=== PATIENT | male | born 1950 | race Caucasian/White ===

== ENCOUNTER 2020-05-01 09:40 | Observation (INO) | payer BC ==
[~2020-05-01] VITALS: Ht 182.9 cm; Wt 73.5 kg
--- OUTSIDE RECORDS SUMMARY | 2020-05-01 09:45 | XMS REPORT | Continuity of Care Document ---
Author Author [facility] Organization [facility] Address [address] [place] [address] [place] [phone] Phone Unavailable Care Team Providers Care Cashier Or Checker Stock Clerk Name Role Phone GIANA KWON Unavailable Problems This patient has no known problems. Allergies, Adverse Reactions, Alerts This patient has no known allergies or adverse reactions. Medications This patient has no known medications. Procedures This patient has no known procedures. Results Test Description Test Time Test Comments Results Result Comments Source US EXTREMITY RAMOS NON-VAS [place] [address] Patient Name: PHILIP LIU MR #: [id number] : 1950 Age/Sex: 67/M Req #: [id number] Adm Physician: Ordered by: GIANA KWON DO Report #: [id number] Location: US Room/Bed: Procedure: [id number] US/US EXTREMITY RAMOS NON-VAS Exam Date: Exam Time: REPORT STATUS: Signed PROCEDURE: EXTREMITY ULTRASOUND COMPARISON: None. INDICATIONS: Left Groin Pain, history of lymphoma TECHNIQUE: Color duplex Doppler ultrasound evaluation analysis was performed in the usual manner. FINDINGS: Directed sonographic interrogation of the right inguinal canal demonstrates multiple enlarged lymph nodes. The largest measures 2.5 x 3.4 x 1.3 cm. There is normal sonographic echotexture and vascularity. Directed sonographic interrogation of the left inguinal canal demonstrates multiple enlarged lymph nodes. The largest measures 1.2 x 4.5 x 2.9 cm. This also has normal sonographic echotexture and vascularity. The patient indicates a palpable area in the area pain in the left groin which corresponds to the largest left inguinal lymph node. There is no evidence of hernia or fluid collection. Regional vascular structures are normal in morphology. CONCLUSION: Bilateral inguinal lymphadenopathy consistent with patient's history of lymphoma. No evidence of hernia. Dictated by: Kelley Segal M.D. on 08/06/2017 at 17:16 Electronically approved by: Kelley Segal M.D. on 08/06/2017 at 17:16 Dictated By: KELLEY SEGAL MD 15 Transcribed By: HEIDI on 08/06/171715 COPY TO: GIANA KWON TESTICULAR [place] [address] Patient Name: PHILIP LIU MR #: [id number] : 1950 Age/Sex: 67/M Req #: [id number] [facility] Physician: Ordered by: GIANA KWON DO Report #: [id number] Location: Room/Bed: Procedure: [id number] US/US TESTICULAR Exam Date: 08/06/17 Exam Time: 1552 REPORT STATUS: Signed PROCEDURE: TESTICULAR ULTRASOUND COMPARISON: Patients [facility], US, US TESTICULAR DOPPLER LTD, 08/06/2017, 15:[address] of the chest, abdomen, pelvis performed 02/17/2012 INDICATIONS: Left Testicular Pain, history of lymphoma TECHNIQUE: The scrotum was evaluated with agustin scale and color duplex Doppler sonography. FINDINGS: TESTES: Right testicle: Measures 10.5 x 4.1 x 4.0 cm. Left testicle: Measures 2.3 x 3.4 x 6.3 cm. Echotexture: Normal. Mass: Normal. Vascularity: Normal on color and spectral Doppler interrogation. EPIDIDYMIS: Right epididymal head measures 5 x 7 x 14 mm. Left epididymal head measures 8 x 15 x 10 mm. Mass: Left epididymal head cyst 3 x 6 x 4 mm. Hydrocele/varicocele: None. OTHER: No evidence of hernia or other abnormality. CONCLUSION: 1. The left testicle is longer than the right, but otherwise normal. 2. Normal testicular blood flow. 3. Small left epididymal head cyst. Dictated by: Kelley Segal M.D. on 08/06/2017 at 17:22 Electronically approved by: Kelley Segal M.D. on 08/06/2017 at 17:22 Dictated By: KELLEY SEGAL MD 172 Transcribed By: HEIDI on 08/06/17 172 COPY TO: GIANA KWON DO US TESTICULAR DOPPLER LTD [place] [address] Patient Name: PHILIP LIU MR #: [id number] : 1950 Age/Sex: 67/M Req #: [id number] Adm Physician: Ordered by: GIANA KWON DO Report #: [id number] Location: US Room/Bed: Procedure: [id number] US/US TESTICULAR DOPPLER LTD Exam Date: 08/06/17 Exam Time: 1522 REPORT STATUS: Signed PROCEDURE: TESTICULAR DOPPLER ULTRASOUND COMPARISON: None. INDICATIONS: Left Testicular Pain CONCLUSION: Please see ACC# [id number] for report. It should be noted that the right testicle measures 2.5 x 4.1 x 4.0 cm. Dictated by: Kelley Segal M.D. on 08/06/2017 at 17:28 Electronically approved by: Kelley Segal M.D. on 08/06/2017 at 17:28 Dictated By: KELLEY SEGAL MD 27 Transcribed By: HEIDI on 08/06/171727 COPY TO: GIANA KWON DO
[2020-05-01] MEDS ORDERED: SODIUM CHLORIDE 0.9% 1000ML 1,000 ML IV STA (09:56)
[2020-05-01] MEDS ORDERED: ASPIRIN 81 MG CHEW TAB PO STA (09:56)
[2020-05-01] MEDS ORDERED: PANTOPRAZOLE 40 MG 10ML VIAL IV STA (09:56)
[2020-05-01 10:17] LABS: BASOPHILS # (AUTO) 0.1 (0.0-0.1); BASOPHILS % 0.7 % (0.0-1.0); EOSINOPHILS # (AUTO) 0.1 (0.0-0.4); EOSINOPHILS % 1.6 % (0.0-6.0); HEMATOCRIT 44.2 % (38.2-49.6); HEMOGLOBIN 14.3 g/dL (14.0-18.0); LYMPHOCYTES # (AUTO) 1.5 (1.0-3.2); LYMPHOCYTES % 20.1 % (18.0-39.1); MEAN CORPUSCULAR HEMOGLOBIN 29.9 pg (28-32); MEAN CORPUSCULAR HGB CONC 32.4 g/dL (31-35); MEAN CORPUSCULAR VOLUME 92.5 fL (81-99); MONOCYTES # (AUTO) 0.7 (0.2-0.8); MONOCYTES % 9.8 % (4.4-11.3); NEUTROPHILS % 67.5 % (38.7-80.0); PLATELET COUNT 240 x10e3/uL (140-360); RED BLOOD COUNT 4.78 x10e6/uL (4.3-5.7); RED CELL DISTRIBUTION WIDTH 12.5 % (11.7-14.4)
--- NOTE | 2020-05-01 10:38 | Diagnostic Imaging Report ---
EXAMINATION: CHEST SINGLE (PORTABLE) INDICATION: Chest pain COMPARISON: None FINDINGS: LINES/TUBES:EKG leads overlie the chest. LUNGS:The lungs are well-inflated. No focal consolidation or pulmonary edema. PLEURA:No pleural effusion or pneumothorax. MEDIASTINUM:The cardiomediastinal silhouette appears normal in size and shape. BONES/SOFT TISSUES:No acute osseous injury. ABDOMEN:No free air under the diaphragm. IMPRESSION: No focal pneumonia or pulmonary edema. Signed by: Imtiaz Hardin MD on 05/01/2020 10:35 AM
[2020-05-01 10:42] LABS: ALANINE AMINOTRANSFERASE 14 IU/L (0-55); ALBUMIN 3.7 g/dL (3.5-5.0); ALBUMIN/GLOBULIN RATIO 1.1 (0.8-2.0); ALKALINE PHOSPHATASE 63 IU/L (40-150); ANION GAP 13.6 mmol/L (8-16); BLOOD UREA NITROGEN 13 mg/dL (7-26); BUN/CREATININE RATIO 16 (6-25); CALCIUM 9.5 mg/dL (8.4-10.2); CARBON DIOXIDE 26 mmol/L (22-29); CHLORIDE 101 mmol/L (98-107); CREATINE KINASE 115 IU/L (30-200); CREATININE, SERUM 0.83 mg/dL (0.72-1.25); EST GLOMERULAR FILTRATION RATE > 60 ML/MIN (60-); GLUCOSE 104 mg/dL (74-118); LIPASE 22 U/L (8-78); POTASSIUM 4.6 mmol/L (3.5-5.1); SODIUM 136 mmol/L (136-145)
[2020-05-01 10:49] LABS: INR 0.87; PARTIAL THROMBOPLASTIN TIME 27.8 seconds (23.8-35.5); PROTHROMBIN TIME 12.3 seconds (11.9-14.5)
[2020-05-01 11:09] LABS: CLARITY,URINE CLEAR (CLEAR); COLOR,URINE YELLOW (YELLOW); LEUKOCYTE ESTERASE ,URINE NEGATIVE (NEGATIVE); NITRITE,URINE NEGATIVE (NEGATIVE)
[2020-05-01 11:10] LABS: BILIRUBIN,URINE NEGATIVE (NEGATIVE); KETONES,URINE NEGATIVE (NEGATIVE); PROTEIN,URINE DIPSTICK NEGATIVE (NEGATIVE); URINE UROBILINOGEN 0.2 mg/dL (0.2 - 1)
[2020-05-01 11:23] LABS: BACTERIA,URINE RARE /HPF; EPITHELIAL CELLS,URINE RARE /LPF
--- NOTE | 2020-05-01 11:42 | NUR ---
Attempted to administer 81 mg chewable aspirin as order per . Pt states he took 325 mg Aspirin this AM at 0800 before coming to ER and declined this administration. Notified
[2020-05-01] MEDS ORDERED: NITROGLYCERIN 0.4 MG SUBL SL PRN (11:45)
[2020-05-01] MEDS ORDERED: ONDANSETRON HCL INJ 2MG/ML 2ML 2 MG/ML VIAL IV PRN (11:45)
[2020-05-01] MEDS ORDERED: MORPHINE SULFATE 2 MG/ML SYR 1ML IV PRN (11:45)
--- OUTSIDE RECORDS SUMMARY | 2020-05-01 11:45 | XMS REPORT | Continuity of Care Document ---
Author Author [facility] Organization [facility] Address [address] [place]. [address] [place] [phone] Phone Unavailable Care Team Providers Care Photo Lab Manager Name Role Phone Ricki MARTEL Attphys Unavailable GIANA KWON Attphytosin Unavailable Problems This patient has no known problems. Allergies, Adverse Reactions, Alerts This patient has no known allergies or adverse reactions. Medications This patient has no known medications. Procedures This patient has no known procedures. Results Test Description Test Time Test Comments Results Result Comments Source CHEST SINGLE (PORTABLE) 2020-05-01 10:34:00 [place] [address] Patient Name: ABDULAZIZ LIU MR #: [id number] : 1950 Age/Sex: 69/M Req #: [id number] Adm Physician: Ordered by: SHAHANA MARTEL MD Report #: [id number] Location: ER Room/Bed: Procedure: [id number] DX/CHEST SINGLE (PORTABLE) Exam Date: 05/01/20 Exam Time: 1000 REPORT STATUS: Signed EXAMINATION: CHEST SINGLE (PORTABLE) INDICATION: Chest pain COMPARISON: None FINDINGS: LINES/TUBES:EKG leads overlie the chest. LUNGS:The lungs are well-inflated. No focal consolidation or pulmonary edema. PLEURA:No pleural effusion or pneumothorax. MEDIASTINUM:The cardiomediastinal silhouette appears normal in size and shape. BONES/SOFT TISSUES:No acute osseous injury. ABDOMEN:No free air under the diaphragm. IMPRESSION: No focal pneumonia or pulmonary edema. Signed by: Malinda Villalta MD on 05/01/2020 10:35 AM Dictated By: MALINDA VILLALTA MD 34 Transcribed By: VIC on 05/01/201034 COPY TO: SHAHANA MARTEL MD US EXTREMITY RAMOS NON-VAS [place] [address] Patient Name: PHILIP LIU MR #: [id number] : 1950 Age/Sex: 67/M Req #: [id number] Adm Physician: Ordered by: GIANA KWON DO Report #: [id number] Location: US Room/Bed: Procedure: [id number] US/US EXTREMITY RAMOS NON-VAS Exam Date: Exam [...] HEIDI on 08/06/171715 COPY TO: GIANA KWON DO US TESTICULAR [place] [address] Patient Name: PHILIP LIU MR #: [id number] : 1950 Age/Sex: 67/M Req #: [id number] Adm Physician: Ordered by: GIANA KWON DO Report #: [id number] Location: US Room/Bed: Procedure: [id number] US/US TESTICULAR Exam Date: 08/06/17 Exam Time: 1552 REPORT STATUS: Signed PROCEDURE: TESTICULAR ULTRASOUND COMPARISON: [facility], US, US TESTICULAR DOPPLER [facility]TD, 08/06/2017, [...] at 17:22 Dictated By: KELLEY SEGAL MD 21 Transcribed By: HEIDI on 08/06/171721 COPY TO: GIANA KWON DO US TESTICULAR [facility]ER [employer] [place] [address] Patient Name: PHILIP LIU MR #: [id number] : 1950 Age/Sex: 67/M Req #: [id number] Adm Physician: Ordered by: GIANA KWON DO Report #: [id number] Location: Room/Bed: Procedure: [id number] US/US TESTICULAR DOPPLER LTD Exam Date: 08/06/17 Exam Time: 1522 REPORT STATUS: Signed PROCEDURE: TESTICULAR DOPPLER ULTRASOUND COMPARISON: None. INDICATIONS: Left Testicular Pain CONCLUSION: Please see ACC# [id number] for report. It should be noted that the right testicle measures 2.5 x 4.1 x 4.0 cm. Dictated by: Kelley Segal M.D. on 08/06/2017 at 17:28 Electronically approved by: Kelley Segal M.D. on 08/06/2017 at 17:28 Dictated By: KELLEY SEGAL MD 27 Transcribed By: HEIDI on 08/06/171727 COPY TO: GIANA KWON DO
--- NOTE | 2020-05-01 11:57 | Emergency Department Note ---
History of Present Illnes History of Present Illness Chief Complaint: Chest Pain History of Present Illness This is a 69 year old male c/o cp states he thought he was having a heart attack symptoms started around 0630 today c/o pain with deep inspiration denies pain radiating anywhere. Historian: Patient Arrival Mode: Car Training Administrator Required: No Onset (how long ago): hour(s) Location: CHEST Quality: "PAIN" Radiation: Reports non-radiation Severity: moderate Onset quality: sudden Timing of current episode: intermittent Progression: waxing and waning Chronicity: new Context: Denies recent illness Relieving factors: none Exacerbating factors: other (DEEP BREATHS) Associated symptoms: Reports denies other symptoms Treatments prior to arrival: none Past Medical/Family History Physician Review I have reviewed the patient's past medical and family history. Any updates have been documented here. 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 Social History Smoking Cessation: Current some day smoker Counseling Performed: No Alcohol Use: Occasional Any Illegal Drug Use: No TB Exposure/Symptoms: No Physically hurt or threatened: No Other Last Tetanus: unk Any Pre-Existing Lines (PICC,: No Is patient up to date on immun: Yes Last Flu: utd Last Pneumovax: utd Review of Systems Review of Systems Constitutional: Reports no symptoms EENTM: Reports no symptoms Cardiovascular: Reports as per HPI, Reports chest pain Respiratory: Reports no symptoms Gastrointestinal: Reports no symptoms Genitourinary: Reports no symptoms Musculoskeletal: Reports no symptoms Integumentary: Reports no symptoms Neurological: Reports no symptoms Psychological: Reports no symptoms Endocrine: Reports no symptoms Hematological/Lymphatic: Reports no symptoms Review of other systems All other systems reviewed and negative. Physical Exam Related Data Allergies: Coded Allergies: No Known Allergies (Unverified , 12/31/11) Triage Vital Signs Vital Signs Date Time Temp Pulse Resp B/P (MAP) Pulse Ox O2 Delivery O2 Flow Rate FiO2 05/01/20 09:44 97.6 65 18 153/99 100 Physical Exam CONSTITUTIONAL Constitutional: Reports well-developed, Reports well-nourished HENT HENT: Reports normocephalic, Reports atraumatic, Reports oropharynx clear/moist, Reports nose normal HENT L/R: Reports left ext ear normal, Reports right ext ear normal EYES Eyes: Reports PERRL, Reports conjunctivae normal NECK Neck: Reports ROM normal PULMONARY Pulmonary: Reports effort normal, Reports breath sounds normal CARDIOVASCULAR Cardiovascular: Reports regular rhythm, Reports heart sounds normal, Reports capillary refill normal, Reports normal rate GASTROINTESTINAL Abdominal: Reports soft, Reports nontender, Reports bowel sounds normal GENITOURINARY Genitourinary: Reports exam deferred SKIN Skin: Reports warm, Reports dry MUSCULOSKELETAL Musculoskeletal: Reports ROM normal NEUROLOGICAL Neurological: Reports alert, Reports oriented x 3, Reports no gross motor or sensory deficits PSYCHOLOGICAL Psychological: Reports mood/affect normal, Reports judgement normal Results Laboratory Result Diagram: 05/01/20 0954 05/01/20 0954 Laboratory Laboratory Tests Test 05/01/20 09:54 White Blood Count 7.33 x10e3/uL (4.8-10.8) Red Blood Count 4.78 x10e6/uL (4.3-5.7) Hemoglobin 14.3 g/dL (14.0-18.0) Hematocrit 44.2 % (38.2-49.6) Mean Corpuscular Volume 92.5 fL (81-99) Mean Corpuscular Hemoglobin 29.9 pg (28-32) Mean Corpuscular Hemoglobin Concent 32.4 g/dL (31-35) Red Cell Distribution Width 12.5 % (11.7-14.4) Platelet Count 240 x10e3/uL (140-360) Neutrophils (%) (Auto) 67.5 % (38.7-80.0) Lymphocytes (%) (Auto) 20.1 % (18.0-39.1) Monocytes (%) (Auto) 9.8 % (4.4-11.3) Eosinophils (%) (Auto) 1.6 % (0.0-6.0) Basophils (%) (Auto) 0.7 % (0.0-1.0) Neutrophils # (Auto) 5.0 (2.1-6.9) Lymphocytes # (Auto) 1.5 (1.0-3.2) Monocytes # (Auto) 0.7 (0.2-0.8) Eosinophils # (Auto) 0.1 (0.0-0.4) Basophils # (Auto) 0.1 (0.0-0.1) Absolute Immature Granulocyte (auto 0.02 x10e3/uL (0-0.1) Prothrombin Time 12.3 seconds (11.9-14.5) Prothromb Time International Ratio 0.87 Activated Partial Thromboplast Time 27.8 seconds (23.8-35.5) D-Dimer Quantitative (PE/DVT) 126 ng/mL (0-400) Urine Color Yellow (YELLOW) Urine Clarity Clear (CLEAR) Urine pH 6 (5 - 7) Urine Specific [place] 1.010 (1.010-1.025) Urine Protein Negative (NEGATIVE) Urine Glucose (UA) Negative (NEGATIVE) Urine Ketones Negative (NEGATIVE) Urine Blood Negative (NEGATIVE) Urine Nitrite Negative (NEGATIVE) Urine Bilirubin Negative (NEGATIVE) Urine Urobilinogen 0.2 mg/dL (0.2 - 1) Urine Leukocyte Esterase Negative (NEGATIVE) Urine RBC None /HPF (0-5) Urine WBC None /HPF (0-5) Urine Epithelial Cells Rare /LPF (NONE) Urine Bacteria Rare /HPF (NONE) Sodium Level 136 mmol/L (136-145) Potassium Level 4.6 mmol/L (3.5-5.1) Chloride Level 101 mmol/L (98-107) Carbon Dioxide Level 26 mmol/L (22-29) Anion Gap 13.6 mmol/L (8-16) Blood Urea Nitrogen 13 mg/dL (7-26) Creatinine 0.83 mg/dL (0.72-1.25) Estimat Glomerular Filtration Rate > 60 ML/MIN (60-) BUN/Creatinine Ratio 16 (6-25) Glucose Level 104 mg/dL (74-118) Calcium Level 9.5 mg/dL (8.4-10.2) Total Bilirubin 0.4 mg/dL (0.2-1.2) Aspartate Amino Transf (AST/SGOT) 23 IU/L (5-34) Alanine Aminotransferase (ALT/SGPT) 14 IU/L (0-55) Alkaline Phosphatase 63 IU/L (40-150) Creatine Kinase 115 IU/L (30-200) Creatine Kinase MB 2.50 ng/mL (0-5.0) Troponin I 0.029 ng/mL (0-0.300) Total Protein 7.0 g/dL (6.5-8.1) Albumin 3.7 g/dL (3.5-5.0) Globulin 3.3 g/dL (2.3-3.5) Albumin/Globulin Ratio 1.1 (0.8-2.0) Lipase 22 U/L (8-78) Lab results reviewed: Yes Imaging Imaging results reviewed: Yes Impressions EXAMINATION: CHEST SINGLE (PORTABLE) INDICATION: Chest pain COMPARISON: None FINDINGS: LINES/TUBES:EKG leads overlie the chest. LUNGS:The lungs are well-inflated. No focal consolidation or pulmonary edema. PLEURA:No pleural effusion or pneumothorax. MEDIASTINUM:The cardiomediastinal silhouette appears normal in size and shape. BONES/SOFT TISSUES:No acute osseous injury. ABDOMEN:No free air under the diaphragm. IMPRESSION: No focal pneumonia or pulmonary edema. Signed by: Imtiaz Hardin MD on 05/01/2020 10:35 AM Diagnostics Tests Diagnostic test(s) reviewed: Yes Procedures 12 Lead ECG Interpretation ECG Interpretation : ECG: ECG 1 Training Administrator: Interpreted by ED physician Date: May 01, 2020 Time: 09:45 Rhythm: sinus rhythm Rate: normal QRS axis: normal ST segments normal: Yes T waves normal: Yes Clinical Impression: normal ECG Assessment & Plan Medical Decision Making MDM CHEST PAIN - CHECK CBC, CHEM'S, ECG, CARDIAC ENZYMES, D-DIMER - R/O STEMI/NSTEMI, PULM EMBOLUS, ELECTROLYTE ABNL, ANEMIA Reassessment Reassessment SPOKE WITH DR Floyd MARKS FOR OBS ADMISSION, SPOKE WITH CARDIOLOGY, DR Joy KWON Assessment & Plan Final Impression: (1) Chest pain Depart Disposition: ADMITTED Last Vital Signs Date Time Temp Pulse Resp B/P (MAP) Pulse Ox O2 Delivery O2 Flow Rate FiO2 05/01/20 09:44 97.6 65 18 153/99 100 Medications in the ED Pantoprazole Sodium 40 mg ONCE STAT IV Last administered on 05/01/20at 11:04; Admin Dose 40 MG; Start 05/01/20 at 09:56; Stop 05/01/20 at 10:00; Status DC Sodium Chloride 1,000 ml @ 0 mls/hr Q0M STAT IV Last administered on 05/01/20at 11:04; Admin Dose 1,000 MLS/HR; Start 05/01/20 at 09:56; Stop 05/01/20 at 09:59; Status DC Aspirin 81 mg ONCE STAT PO ; Start 05/01/20 at 09:56; Stop 05/01/20 at 10:00; Status DC SHAHANA MARTEL MD May 01, 2020 11:57
--- NOTE | 2020-05-01 18:47 | NUR ---
Cardiac enzymes drawn and sent to lab
[2020-05-01 19:16] LABS: CREATINE KINASE MB 2.8 ng/mL (0-5.0)
[2020-05-01] MEDS ORDERED: FAMOTIDINE 20 MG/2 ML VIAL IV SCH (21:00)
--- NOTE | 2020-05-01 22:05 | NUR ---
PATIENT ARRIVED TO THE UNIT VIA WHEELCHAIR WITH BELONGINGS. PATIENT IS A&OX3 AND AMBULATES. CALL LIGHT WITHIN REACH. RECEIVED REPORT FROM ANGELO QUISPE NURSE.
[2020-05-01 22:07] VITALS: BP 140/84
[2020-05-01 22:15] VITALS: BP 140/84
[2020-05-01] MEDS ORDERED: LISINOPRIL10 MG PO (23:28)
--- NOTE | 2020-05-01 23:55 | NUR ---
PATIENT IS SAYING HE DIAGNOSED HIMSELF AND SHOULD NOT BE HERE. HE SAID HE HAS TO LEAVE TOMORROW OR HE WILL WALK OUT. 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
[2020-05-02] VITALS: BP 146/89
[2020-05-02 04:00] VITALS: BP 129/84
[2020-05-02 04:22] LABS: BASOPHILS % 0.7 % (0.0-1.0); EOSINOPHILS # (AUTO) 0.2 (0.0-0.4); EOSINOPHILS % 4.7 % (0.0-6.0); HEMATOCRIT 40.4 % (38.2-49.6); HEMOGLOBIN 13.3 g/dL (14.0-18.0); LYMPHOCYTES # (AUTO) 1.1 (1.0-3.2); LYMPHOCYTES % 23.9 % (18.0-39.1); MEAN CORPUSCULAR HEMOGLOBIN 30.2 pg (28-32); MEAN CORPUSCULAR HGB CONC 32.9 g/dL (31-35); MEAN CORPUSCULAR VOLUME 91.8 fL (81-99); MONOCYTES # (AUTO) 0.5 (0.2-0.8); MONOCYTES % 10.6 % (4.4-11.3); NEUTROPHILS # (AUTO) 2.7 (2.1-6.9); NEUTROPHILS % 59.9 % (38.7-80.0); PLATELET COUNT 207 x10e3/uL (140-360); RED CELL DISTRIBUTION WIDTH 12.7 % (11.7-14.4)
[2020-05-02 04:41] LABS: CREATINE KINASE MB 2.2 ng/mL (0-5.0)
[2020-05-02 05:13] LABS: BLOOD UREA NITROGEN 11 mg/dL (7-26); BUN/CREATININE RATIO 14 (6-25); CALCIUM 9.2 mg/dL (8.4-10.2); CARBON DIOXIDE 23 mmol/L (22-29); CHLORIDE 109 mmol/L (98-107); CHOLESTEROL 160 MD/DL (0-199); EST GLOMERULAR FILTRATION RATE > 60 ML/MIN (60-); GLUCOSE 87 mg/dL (74-118); HDL CHOLESTEROL 40 MG/DL (40-60); LDL CHOLESTEROL 108 MG/DL (60-130); SODIUM 142 mmol/L (136-145); TRIGLYCERIDES 61 MG/DL (0-149)
--- NOTE | 2020-05-02 07:00 | NUR ---
pt adamant about leaving, states " i diagnosed myself my testing is fine i want to leave" this nurse explained she had to speak with the doctor first. pt agreed to stay until spoken to doctor.
--- NOTE | 2020-05-02 07:13 | NUR ---
GAVE BEDSIDE SHIFT REPORT TO ONCOMING NURSE. CALL LIGHT WITHIN REACH. PATIENT WALKING AROUND ROOM WANTING TO LEAVE NOW. HOURLY ROUNDING PERFORMED. DR. Floyd MARKS WAS CALLED BECAUSE PATIENT WANTS TO LEAVE AMA. WAITING FOR DR. Floyd MARKS TO CALL BACK
--- NOTE | 2020-05-02 07:25 | NUR ---
spoke with Dr. Rocio mendes re: pt wanting to leave, cardiac markers negative, bp stable 141/89, 65, orders given to discharge pt home and follow up with dr estes.
[2020-05-02 07:35] VITALS: BP 141/89
[2020-05-02 08:16] VITALS: BP 127/92
[2020-05-02] MEDS ORDERED: ASPIRIN 81 MG ENTERIC COATED PO SCH (09:00)
== END 2020-05-02 09:00 | disposition home or self-care (01) ==
LOC: ER 09:40 → ERHOLD 11:34 → MED/SURG 22:05
DX: R07.89 Other chest pain (principal); Z11.59 Encounter for screening for other viral diseases
CPT/HCPCS: 36415 ×2; 71045; 80048; 80053; 80061; 81001; 82550 ×2; 82553 ×2; 83690; 84484 ×2; 85025 ×2; 85379; 85610; 85730; 87635; 93005; 99284; C9113; G0378 ×2

== ENCOUNTER 2020-05-17 22:31 | Observation (INO) | payer BC, OTHER ==
[~2020-05-17] VITALS: Ht 182.9 cm; Wt 71.7 kg
[~2020-05-17 22:31] MED LIST: LISINOPRIL10 MG PO
[2020-05-17 23:44] LABS: BASOPHILS % 0.4 % (0.0-1.0); EOSINOPHILS # (AUTO) 0.1 (0.0-0.4); EOSINOPHILS % 1.2 % (0.0-6.0); HEMATOCRIT 44.8 % (38.2-49.6); HEMOGLOBIN 14.6 g/dL (14.0-18.0); LYMPHOCYTES # (AUTO) 1.4 (1.0-3.2); MEAN CORPUSCULAR HEMOGLOBIN 29.9 pg (28-32); MEAN CORPUSCULAR HGB CONC 32.6 g/dL (31-35); MEAN CORPUSCULAR VOLUME 91.6 fL (81-99); MONOCYTES # (AUTO) 0.6 (0.2-0.8); MONOCYTES % 8.1 % (4.4-11.3); NEUTROPHILS # (AUTO) 5.2 (2.1-6.9); NEUTROPHILS % 71.2 % (38.7-80.0); PLATELET COUNT 224 x10e3/uL (140-360); RED BLOOD COUNT 4.89 x10e6/uL (4.3-5.7); RED CELL DISTRIBUTION WIDTH 12.7 % (11.7-14.4)
[2020-05-18] VITALS (8 sets, daily range): BP systolic 104–126; BP diastolic 62–87
[2020-05-18 00:02] LABS: ALANINE AMINOTRANSFERASE 15 IU/L (0-55); ALBUMIN/GLOBULIN RATIO 1.5 (0.8-2.0); ALKALINE PHOSPHATASE 57 IU/L (40-150); ANION GAP 12.3 mmol/L (8-16); BLOOD UREA NITROGEN 17 mg/dL (7-26); BUN/CREATININE RATIO 13 (6-25); CALCIUM 9.4 mg/dL (8.4-10.2); CARBON DIOXIDE 27 mmol/L (22-29); CHLORIDE 102 mmol/L (98-107); CREATINE KINASE 150 IU/L (30-200); CREATININE, SERUM 1.26 mg/dL (0.72-1.25); EST GLOMERULAR FILTRATION RATE 57 ML/MIN (60-); GLUCOSE 102 mg/dL (74-118); POTASSIUM 4.3 mmol/L (3.5-5.1); SODIUM 137 mmol/L (136-145)
--- NOTE | 2020-05-18 00:27 | Diagnostic Imaging Report ---
EXAMINATION: Head CT without contrast. HISTORY:Syncope, fall. COMPARISON:None. TECHNIQUE: Multidetector axial images were obtained from the foramen magnum to the vertex without contrast. The images were reconstructed using brain and bone algorithms. Thin section brain images were reformatted into coronal and sagittal planes. Dose modulation, iterative reconstruction, and/or weight based adjustment of the mA/kV was utilized to reduce the radiation dose to as low as reasonably achievable. Intravenous contrast: None IMAGE QUALITY: Acceptable. FINDINGS: Skull/scalp: No lytic or blastic. lesions. No surgical changes. Parenchyma: Nonspecific bilateral frontoparietal patchy white matter hypodensity are likely related to small vessel ischemic changes.. No acute hemorrhage, mass or acute major vascular territorial infarct. Arteries: No density suggestive of thrombosis. Dural sinuses: No abnormal density suggestive of thrombosis. Ventricles: Mild compensated dilatation due to volume loss. No hydrocephalus. Extra-axial spaces: No abnormal density. Brain volume: Mild generalized cerebral volume loss. Craniocervical junction: No mass, Chiari malformation, or basilar invagination. Sella: No mass. Paranasal/mastoid sinuses: Opacification of the visualized portion of left maxillary sinus. Mild mucosal thickening in left ethmoid sinus. IMPRESSION: No acute intracranial abnormality. Mild supratentorial white matter microvascular ischemic changes. Next Mild generalized cerebral volume loss. Signed by: Dr. Praveena Regalado M.D. on 05/18/2020 12:23 AM
--- NOTE | 2020-05-18 00:33 | Diagnostic Imaging Report ---
History: Syncope, fall. Comparison studies: None Technique: Axial images were obtained through the cervical region.. Coronal and sagittal images reconstructed from the axial data. Dose modulation, iterative reconstruction, and/or weight based adjustment of the mA/kV was utilized to reduce the radiation dose to as low as reasonably achievable. Intravenous contrast: None Findings: Fractures: None. Soft tissue injuries: None. Atlantoaxial articulation: Intact. Alignment: Normal lordosis. No scoliosis. 2 mm grade 1 anterolisthesis at level C4-C5 and C5-C6, is degenerative. Cervicomedullary junction: No abnormalities. The foramen magnum is patent. Soft tissues: No abnormalities. Vertebrae: No fractures, infection or neoplasm. Degenerative changes: Advanced degenerative changes in the anterior atlantodental joint. C3-C4: Moderate degenerative disc disease. Posterior disc osteophyte complex results in mild canal stenosis. Mild right foraminal stenosis due to facet and uncovertebral arthrosis. C4-C5: Mild degenerative disc disease. Posterior disc osteophyte complex results in mild canal stenosis. Mild right foraminal stenosis due to facet and uncovertebral arthrosis. C5-C6: Mild degenerative disc disease and vacuum phenomena and. Moderate right and mild left foraminal stenosis due to facet and uncovertebral arthrosis. C6-C7: Moderate degenerative disc disease. Posterior disc osteophyte complex results in mild canal stenosis. Mild bilateral foraminal stenosis due to facet and uncovertebral arthrosis. C7-T1: Severe right foraminal stenosis due to facet and uncovertebral arthrosis. Incidental finding: Calcified nodules in right lung apex, is partially visualized. IMPRESSION: 1. No acute cervical spine fracture or dislocation. 2. Ligament, spinal cord and or vascular abnormalities cannot be excluded on the basis of this examination. 3. Cervical spondylosis as detailed above. Signed by: Dr. Praveena Regalado M.D. on 05/18/2020 12:30 AM
--- NOTE | 2020-05-18 01:06 | Emergency Department Note ---
History of Present Illnes History of Present Illness Chief Complaint: Chest Pain History of Present Illness This is a 69 year old male arrives to the ED after sustaining a syncopal episode at home. Patient states he felt dizzy and passed out. Chief Complaint Comment 69 Y/O MALE PT AAOX3 REPORTS WITNESSED SYNCOPE EPISODE AT HOME, PT HAS APPROX 1-1.5 CM LACERATION TO LEFT EYEBROW, EDGES ARE WELL APPROXIMATED, NO ACTIVE BLEEDING NOTED, PT REPORTS CONSUMING LIQUOR TONIGHT; EKG PERFORMED AND GIVEN TO ER MD FOR REVIEW; 18 GAUGE IV CATH PLACED TO PTS RIGHT AC, BLOOD OBTAINED FOR LAB ANALYSIS; ER MD TO TRIAGE FOR INITIAL EVAL Historian: Patient Arrival Mode: Car Improvement Engineer Required: No Onset (how long ago): hour(s) Radiation: Reports non-radiation Severity: moderate Onset quality: sudden Timing of current episode: intermittent Chronicity: new Relieving factors: none Exacerbating factors: none Past Medical/Family History Physician Review I have reviewed the patient's past medical and family history. Any updates have been documented here. 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 Other Surgery: FOLLICULAR LYMPHOMA IN NECK, NODE REMOVED Social History Smoking Cessation: Current some day smoker Counseling Performed: Yes Alcohol Use: Occasional Any Illegal Drug Use: Yes (marijuana) TB Exposure/Symptoms: No Physically hurt or threatened: No Family History Family history of heart diseas: No Other Last Tetanus: UNK Any Pre-Existing Lines (PICC,: No Is patient up to date on immun: Yes Last Flu: utd Last Pneumovax: denies Review of Systems Review of Systems Constitutional: Reports as per HPI, Reports malaise, Reports weakness EENTM: Reports no symptoms Cardiovascular: Reports no symptoms Respiratory: Reports no symptoms Gastrointestinal: Reports no symptoms Genitourinary: Reports no symptoms Musculoskeletal: Reports no symptoms Integumentary: Reports no symptoms Neurological: Reports no symptoms Psychological: Reports no symptoms Endocrine: Reports no symptoms Hematological/Lymphatic: Reports no symptoms Physical Exam Related Data Allergies: Coded Allergies: No Known Allergies (Unverified , 12/31/11) Triage Vital Signs Vital Signs Date Time Temp Pulse Resp B/P (MAP) Pulse Ox O2 Delivery O2 Flow Rate FiO2 05/17/20 22:50 98.4 78 17 113/78 100 Vital signs reviewed: Yes Physical Exam CONSTITUTIONAL Constitutional: Present well-developed, Present well-nourished HENT HENT: Present normocephalic, Present oropharynx clear/moist, Present nose normal, Present other (4-5 cm superficial laceration noted over left eyebrow) HENT L/R: Present left ext ear normal, Present right ext ear normal EYES Eyes: Reports PERRL, Reports conjunctivae normal NECK Neck: Present ROM normal PULMONARY Pulmonary: Present effort normal, Present breath sounds normal CARDIOVASCULAR Cardiovascular: Present regular rhythm, Present heart sounds normal, Present capillary refill normal, Present normal rate GASTROINTESTINAL Abdominal: Present soft, Present nontender, Present bowel sounds normal GENITOURINARY Genitourinary: Present exam deferred SKIN Skin: Present warm, Present dry MUSCULOSKELETAL Musculoskeletal: Present ROM normal NEUROLOGICAL Neurological: Present alert, Present oriented x 3, Present no gross motor or sensory deficits PSYCHOLOGICAL Psychological: Present mood/affect normal, Present judgement normal Results Laboratory Result Diagram: 05/17/20 2322 05/17/20 2322 Laboratory Laboratory Tests Test 05/17/20 23:22 White Blood Count 7.30 x10e3/uL (4.8-10.8) Red Blood Count 4.89 x10e6/uL (4.3-5.7) Hemoglobin 14.6 g/dL (14.0-18.0) Hematocrit 44.8 % (38.2-49.6) Mean Corpuscular Volume 91.6 fL (81-99) Mean Corpuscular Hemoglobin 29.9 pg (28-32) Mean Corpuscular Hemoglobin Concent 32.6 g/dL (31-35) Red Cell Distribution Width 12.7 % (11.7-14.4) Platelet Count 224 x10e3/uL (140-360) Neutrophils (%) (Auto) 71.2 % (38.7-80.0) Lymphocytes (%) (Auto) 19.0 % (18.0-39.1) Monocytes (%) (Auto) 8.1 % (4.4-11.3) Eosinophils (%) (Auto) 1.2 % (0.0-6.0) Basophils (%) (Auto) 0.4 % (0.0-1.0) Neutrophils # (Auto) 5.2 (2.1-6.9) Lymphocytes # (Auto) 1.4 (1.0-3.2) Monocytes # (Auto) 0.6 (0.2-0.8) Eosinophils # (Auto) 0.1 (0.0-0.4) Basophils # (Auto) 0.0 (0.0-0.1) Absolute Immature Granulocyte (auto 0.01 x10e3/uL (0-0.1) Sodium Level 137 mmol/L (136-145) Potassium Level 4.3 mmol/L (3.5-5.1) Chloride Level 102 mmol/L (98-107) Carbon Dioxide Level 27 mmol/L (22-29) Anion Gap 12.3 mmol/L (8-16) Blood Urea Nitrogen 17 mg/dL (7-26) Creatinine 1.26 mg/dL (0.72-1.25) Estimat Glomerular Filtration Rate 57 ML/MIN (60-) BUN/Creatinine Ratio 13 (6-25) Glucose Level 102 mg/dL (74-118) Calcium Level 9.4 mg/dL (8.4-10.2) Total Bilirubin 0.3 mg/dL (0.2-1.2) Aspartate Amino Transf (AST/SGOT) 19 IU/L (5-34) Alanine Aminotransferase (ALT/SGPT) 15 IU/L (0-55) Alkaline Phosphatase 57 IU/L (40-150) Creatine Kinase 150 IU/L (30-200) Creatine Kinase MB 2.60 ng/mL (0-4.3) Troponin I < 0.05 ng/mL (0.0-0.40) Total Protein 6.7 g/dL (6.5-8.1) Albumin 4.0 g/dL (3.5-5.0) Globulin 2.7 g/dL (2.3-3.5) Albumin/Globulin Ratio 1.5 (0.8-2.0) Procedures 12 Lead ECG Interpretation ECG Interpretation : ECG: ECG 1 Improvement Engineer: Interpreted by ED physician Rhythm: sinus rhythm Rate: normal QRS axis: normal ST segments normal: Yes T waves normal: Yes Clinical Impression: normal ECG Assessment & Plan Medical Decision Making MDM 69-year-old male arrives the ED of sustaining a fall, complaining of dizziness prior to fall. Concerns of syncope. Patient admitted to telemetry unit for monitoring. Dr. Mcdonnell accepted admission. Assessment & Plan Final Impression: (1) Syncope Depart Disposition: HOME, SELF-CARE Last Vital Signs Date Time Temp Pulse Resp B/P (MAP) Pulse Ox O2 Delivery O2 Flow Rate FiO2 05/17/20 23:34 70 12 117/85 100 05/17/20 22:50 98.4 Home Meds Reported Medications Lisinopril (LISINOPRIL) 10 Mg Tablet, 10 MG PO DAILY, #30 TAB 05/01/20 DONNIE KUMAR DO May 18, 2020 01:06
--- NOTE | 2020-05-18 07:15 | NUR ---
REPORT GIVEN TO DAYSHIFT NURSE. PATIENT IN STABLE CONDITION. NO SIGNS OF IV INFILTRATION. BED LOCKED AND IN LOW POSITION. CALL LIGHT WITHIN REACH. BED ALARM ACTIVATED.
--- NOTE | 2020-05-18 07:36 | NUR ---
PATIENT SITTING UP IN BED TALKING ON THE PHONE, NO DISTRESS NOTED. TE[address]METRY [address] ABRASION TO LEFT EYEBROW. BED IN LOWER POSITION, CALL LIGHT AT REACH.
--- NOTE | 2020-05-18 11:34 | NUR ---
PATIENT OUT OF BED TO CHAIR FOLDING HIS CLOTHES. CALL LIGHT AT REACH.
--- NOTE | 2020-05-18 14:45 | NUR ---
PATIENT DISCHARGED HOME. DISCHARGE INSTRUCTIONS AND FOLLOW GIVEN TO PATIENT, HE VERBALIZED UNDERSTANDING. IV TO RIGHT AC REMOVED WITH TIP INTACT. ALL PERSONAL ITEMS TAKEN WITH PATIENT. REFUSED WHEEL CHAIR, BUT WAS ACCOMPANIED BY HOSPITAL STAFF TO FRONT LOBBY IN STABLE CONDITION.
--- NOTE | 2020-05-18 18:41 | History and Physical ---
HISTORY OF PRESENT ILLNESS: A 69-year-old male with past medical history positive for lymphoma, hypertension. He was drinking alcohol and he fainted at home. The patient denies any symptoms. REVIEW OF SYSTEMS: CARDIOVASCULAR: No chest pain or palpitation. RESPIRATORY: No shortness of breath. No cough. GASTROINTESTINAL: No nausea, vomiting. No diarrhea. GENITOURINARY: No frequency. No dysuria. ALLERGIES: NOT ALLERGIC TO ANYTHING. PAST MEDICAL HISTORY: Hypertension, lymphoma. SOCIAL HISTORY: He smokes. He drinks alcohol occasionally. PHYSICAL EXAMINATION: VITAL SIGNS: Blood pressure 115/84, temperature 98.1, heart rate 55 per minute, respiratory rate 20 per minute, oxygen saturation 100%. LABORATORY DATA: On the CBC; white blood count 7.30, hemoglobin 14.6, hematocrit 44.8, and platelet count 224,000. On the CMP; sodium 137, potassium 4.3, chloride 102, CO2 27, BUN 17, creatinine 1.26, GFR is 57, which is making patient chronic renal failure stage 3, glucose 102, calcium 9.4, total bilirubin 0.3, AST 19, ALT 15, alkaline phosphatase 57, creatine kinase 150, CK-MB 2.60, troponin 0.05. Total protein 6.7, albumin 4.0, bilirubin 2.5, globin 2.7. Serologies: Coronavirus test is pending. He also had a CT of the head, which show no acute intracranial abnormality. Mild supratentorial white matter microvascular ischemic changes. Mild generalized cerebral volume loss, then he had a CT of the cervical spine, which showed no fractures or dislocation of ligament, spine cord, and vascular abnormalities cannot be excluded on the . Cervical spondylosis as stated above. FINAL IMPRESSION: 1. Syncopal episode. 2. Hypertension. 3. Alcohol use. 4. Smoker. 5. Lymphoma. 6. Chronic renal failure stage 3. PLAN OF TREATMENT: The patient already had carotid Doppler, preliminary report showing no evidence of any significant carotid stenosis. Echocardiogram is in progress. I am going to order orthostatic blood pressure measurements. If all of these tests including echocardiogram, carotid Doppler, orthostatic blood pressure are negative the patient might be able to go home. Follow up with the primary care physician in a week. MD LORIN Nieto/RITIKA /[id number]
--- NOTE | 2020-05-18 21:06 | Discharge Summary ---
HISTORY: The patient came with a syncopal episode after he was drinking alcohol at home. No significant complaints. Carotid Doppler is completely negative for any carotid stenosis. Echocardiogram is in progress. We are going to order orthostatic blood pressure. EKG is normal sinus rhythm. No evidence of any ST-segment elevation or depression or any arrhythmias. His orthostatic blood pressure is nonsignificant and echocardiogram also does not show any significant abnormalities. The patient might be able to go home today. He is completely asymptomatic and he wants to go home or he is threatening to leave against medical advice. PHYSICAL EXAMINATION: HEART: Showed regular rhythm. Normal S1 and S2 sound. LUNGS: Clear bilaterally. ABDOMEN: Soft. EXTREMITIES: Show no evidence of edema. NEUROLOGIC: Alert and oriented x3. Motor strength 5/5 all over. There are no focal deficits. VITAL SIGNS: Temperature 98.1, heart rate 55 per minute, respiratory rate 20 per minute, blood pressure 115/84, pulse oximetry 100%. LABORATORY DATA: On the BMP; sodium 137, potassium 4.3, chloride 102, CO2 of 27, BUN 17, creatinine 1.26, GFR 57, glucose 102, calcium 9.4, total bilirubin 0.3, AST 19, ALT 15, alkaline phosphatase 57. Creatine kinase 150, troponin 0.05. Total protein 6.7, albumin 4.0, globulin 2.7. On the CBC; white blood count 7.30, hemoglobin 14.6, hematocrit 44.8, and platelet count 224,000. Coronavirus test has been done and the report is pending. The patient has absolutely no symptoms of COVID19. Tentative discharge today if there is no evidence of any significant orthostatic hypotension. His echocardiogram is nonsignificant and his COVID19 test is negative. The patient is threatening to leave against medical advice if we do not send him home today. We explained that we need to run down this test to make sure that there is not any underlying condition that explains syncopal episode. The patient is told to abstain from drinking alcohol and smoking. This will be the tentative discharge summary. The patient is going to follow up with Dr. Valdovinos, his primary care physician as an outpatient as soon as he is discharged. MD LORIN Nieto/MODL /[id number]
[2020-05-19] MEDS ORDERED: LISINOPRIL 10 MG TAB PO SCH (09:00)
== END 2020-05-18 14:43 | disposition home or self-care (01) ==
LOC: ER 22:31 → ERHOLD 05-18 01:13 → MED/SURG3 05-18 05:23
PROVIDERS: ADMIT Internal Medicine; ATTEND Internal Medicine
DX: R55 Syncope and collapse (principal); I10 Essential (primary) hypertension; F17.210 Nicotine dependence, cigarettes, uncomplicated; C85.90 Non-Hodgkin lymphoma, unspecified, unspecified site; F10.10 Alcohol abuse, uncomplicated; Z11.59 Encounter for screening for other viral diseases; M47.892 Other spondylosis, cervical region
CPT/HCPCS: 36415; 70450; 72125; 80053; 82550; 82553; 84484; 85025; 87635; 93005; 93306; 93880; 99284; G0378